=== PATIENT | female | born 1950 | race Caucasian/White ===

== ENCOUNTER 2017-08-05 08:33 | Emergency (ER) | payer MEDICARE ==
[2017-08-05 08:34] VITALS: BP 184/92; PULSE 78; RESP 18; TEMP 98.7; O2SAT 99
--- NOTE | 2017-08-05 09:39 | PD ---
HPI Chief Complaint: Lump, Cyst, Hernia Time Seen by Provider: 09:21 Travel History International Travel<30 days: No Contact w/Intl Traveler<30days: No Traveled to known affect area: No History of Present Illness HPI This is 67 year old female who presents to the emergency department with a mass on her right breast this been there for 1-1/2 years, constant, sore, with no associated purulent drainage, fevers or chills. She had an ultrasound while she was incarcerated and they told her it was highly suspicious for cancer. Currently she is homeless and living in the [facility]. She has no cell phone. She does have Medicare. She was hoping she could be admitted to the hospital and have surgery on this breast mass. [facility] Past Medical History Hypertension: Yes Psychiatric: Yes (ptsd ) Tetanus Vaccination: > 5 Years ?: Not Past Surgical History Surgical History: No Previous Surgery Social History Alcohol Use: No Tobacco Use: Yes Substance Use: No Allergies-Medications (Allergen,Severity, Reaction): Coded Allergies: No Known Allergies (Unverified , 08/05/17) Reported Meds & Prescriptions Reported Meds & Active Scripts Active No Active Prescriptions or Reported Medications Review of Systems General / Constitutional: No: Fever, Chills Gastrointestinal: No: Nausea, Vomiting Physical Exam Narrative GENERAL: Well-appearing, no acute distress, nontoxic SKIN: Warm and dry. Breast: 3 x 3 cm firm irregular lump at 12:00 involving the right breast, nontender with no surrounding induration or erythema HEAD: Atraumatic. Normocephalic. ENT: No nasal bleeding or discharge. Moist mucous membranes MUSCULOSKELETAL: No obvious deformities. No clubbing. No cyanosis. No edema. NEUROLOGICAL: Awake and alert. No obvious cranial nerve deficits. Motor grossly within normal limits. Normal speech. PSYCHIATRIC: Appropriate mood and affect; insight and judgment normal. Data Data Last Documented VS Vital Signs Date Time Temp Pulse Resp B/P (MAP) Pulse Ox O2 Delivery O2 Flow Rate FiO2 08/05/17 08:34 98.7 78 18 184/92 (122) 99 MDM Medical Decision Making Medical Screen Exam Complete: Yes Emergency Medical Condition: Yes Differential Diagnosis Breast cancer, abscess, fibroadenoma Narrative Course This is a 67-year-old female who presents to the emergency department with a mass involving her right breast that's been present for over a year. She certainly needs long-term follow-up. I think our best option is to establish her care through the breast Navigator. [facility] and she is familiar with nurse Juju. I will place a mandatory referral for the breast Navigator through nurse Juju. I also gave the patient a form regarding [facility]. I encouraged her that if this follow-up doesn't work out and she obtains a cell phone she should return to the emergency department and we will try to work with her to establish follow- up. Diagnosis Primary Impression: Breast mass Patient Instructions: General Instructions Additional Instructions: Follow-up with the [facility] or isn't really a health regarding her breast mass. If you have trouble establishing follow-up return to the emergency room. Med/Other Pt SpecificInfo: No Change to Meds Scripts No Active Prescriptions or Reported Meds Disposition: 01 DISCHARGE HOME Condition: Stable Dahiana Infante MD Aug 05, 2017 09:39
== END 2017-08-05 09:57 | disposition home or self-care (01) ==
LOC: NEPD 08:33
DX: N63.0 Unspecified lump in unspecified breast (principal); I10 Essential (primary) hypertension; F43.10 Post-traumatic stress disorder, unspecified; Z59.0 Homelessness
CPT/HCPCS: 99282

== ENCOUNTER 2018-08-11 09:59 | Observation (INO) ==
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
[2018-08-11 10:50] LABS: Baso # (Auto) 0.1 th/mm3 (0.0-0.2); Baso % (Auto) 0.9 % (0.0-2.0); Eos # (Auto) 0.3 th/mm3 (0.0-0.4); Hematocrit 43.2 % (35.0-46.0); Hemoglobin 14.9 gm/dL (11.6-15.3); Lymph # (Auto) 1.6 th/mm3 (1.0-4.8); Lymph % (Auto) 19.9 % (9.0-44.0); Mean Corpuscular HGB Conc 34.5 % (32.0-36.0); Mean Corpuscular Hemoglobin 31.1 pg (27.0-34.0); Mean Corpuscular Volume 90.2 fL (80.0-100.0); Mean Platelet Volume 9.1 fL (7.0-11.0); Mono # (Auto) 0.7 th/mm3 (0.0-0.9); Mono % (Auto) 9.4 % (0.0-8.0); Neut # (Auto) 5.2 th/mm3 (1.8-7.7); Neut % (Auto) 65.8 % (16.0-70.0); Platelet Count 258 th/mm3 (150-450); Red Blood Count 4.79 mil/mm3 (4.00-5.30); Red Cell Distribution Width 14.6 % (11.6-17.2); White Blood Count 7.9 th/mm3 (4.0-11.0)
--- NOTE | 2018-08-11 10:50 | XR ---
EXAM DATE: 08/11/2018 10:47 AM EST AGE/SEX: 68 years / Female INDICATIONS: Chest pain for 3 days, pain left side, no shortness of breath CLINICAL DATA: This is the patient's initial encounter. Patient reports that signs and symptoms have been present for 3 days and indicates a pain score of 8/10. MEDICAL/SURGICAL HISTORY: . smoker None. COMPARISON: No prior exams available for comparison. FINDINGS: Subtle early alveolar opacity laterally right lung without effusion. Left lung clear The heart and pulmonary vascularity are normal. The portion of the bony skeleton visualized is unremarkable. CONCLUSION: Subtle early alveolar opacity right lung could be an inflammatory process. Electronically signed by: Rodrick Crum MD 08/11/2018 10:48 AM EST
--- NOTE | 2018-08-11 10:56 | CT ---
EXAM DATE: 08/11/2018 10:52 AM EST AGE/SEX: 68 years / Female INDICATIONS: Left sided weakness for two days. CLINICAL DATA: This is the patient's initial encounter. Patient reports that signs and symptoms have been present for 1 day and indicates a pain score of 0/10. MEDICAL/SURGICAL HISTORY: Hypertension. Tubal ligation. RADIATION DOSE: 34.89 CTDI (mGy) COMPARISON: . TECHNIQUE: CT of the head without contrast. Using automated exposure control and adjustment of the mA and/or kV according to patient size, radiation dose was kept as low as reasonably achievable to ob tain optimal diagnostic quality images. DICOM format image data is available electronically for revi ew and comparison. FINDINGS: Cerebrum: The ventricles are normal for age. No evidence of midline shift, mass lesion, hemorrhage or acute infarction. No extraaxial fluid collections are seen. Posterior Fossa: The cerebellum and brainstem are intact. The 4th ventricle is midline. The cerebe llopontine angle is unremarkable. Extracranial: The visualized portion of the orbits is intact. Skull: The calvaria is intact. No evidence of skull fracture. CONCLUSION: 1. Negative for an acute process. 2. I do not see significant ischemic changes . Electronically signed by: Rodrick Crum MD 08/11/2018 10:55 AM EST
[2018-08-11 11:09] LABS: Alanine Aminotransferase 25 U/L (10-53); Albumin 3.4 g/dL (3.4-5.0); Anion Gap 7 meq/L (5-15); Aspartate Aminotransferase 25 U/L (15-37); Blood Urea Nitrogen 15 mg/dL (7-18); Calcium 8.5 mg/dL (8.5-10.1); Carbon Dioxide 27.7 meq/L (21.0-32.0); Chloride 107 meq/L (98-107); Glomerular Filtration Rate 50 mL/min (>89); Glucose,Random 113 mg/dL (74-106); Sodium 142 meq/L (136-145)
[2018-08-11 11:14] LABS: Alkaline Phosphatase 154 U/L (45-117); Total Protein 7.6 g/dL (6.4-8.2)
[2018-08-11] MEDS ORDERED: *Labetalol HCl Inj 100 MG/20 ML Vial PERIprocedural Use ONLY IV.PUSH ONE (11:47)
[2018-08-11] MEDS ORDERED: Acetaminophen 325 MG Tablet PO PRN (12:12)
[2018-08-11] MEDS ORDERED: Bisacodyl 10 MG Supp RECTAL PRN (12:12)
[2018-08-11] MEDS ORDERED: Sod Chloride 0.9% Inj 1,000 ML IV.CONT SCH (12:15)
[2018-08-11 13:01] LABS: Bilirubin,Urine Negative (Negative); Clarity,Urine Hazy (Clear); Color,Urine Yellow (Yellw/Straw); Glucose,Urine (UA) Negative (Negative); Leukocyte Esterase,Urine Trace (Negative); Mucus,Urine Few /lpf (Occasional); Nitrite,Urine Negative (Negative); Specific Gravity,Urine 1.017 (1.002-1.035); Squamous Epithelial Cell,Urine 7 /hpf (0-5)
[2018-08-11 15:57] LABS: Chol/HDL Ratio 3.23 Ratio; HDL Cholesterol 55.6 mg/dL (40.0-60.0)
[2018-08-11] MEDS ORDERED: amLODIPine 5 MG Tablet PO ONE (18:00)
[2018-08-11 18:02] VITALS: RESP 20
--- NOTE | 2018-08-11 18:44 | US ---
EXAM DATE: 08/11/2018 6:31 PM EST AGE/SEX: 68 years / Female INDICATIONS: Cerebrovascular accident. CLINICAL DATA: This is the patient's initial encounter. Patient reports that signs and symptoms have been present for 1 day and indicates a pain score of 0/10. MEDICAL/SURGICAL HISTORY: Hypertension. Depression. PTSD. Tubal ligation. COMPARISON: [facility] – [place], [place] HEAD W/O CONTRAST, 08/11/2018. . VELOCITY PARAMETERS: ICA/CCA Ratio: Right Unable to obtain. , Left 1.6 ICA: Right Unable to obtain. cm/sec, Left 134 cm/sec CCA: Right 64.7 cm/sec, Left 86.0 cm/sec ECA: Right 93.0 cm/sec, Left 87.6 cm/sec Vertebral: Right 58.6 cm/sec antegrade, Left 75.9 cm/sec antegrade FINDINGS: No flow identified in the right internal carotid artery which appears to be occluded. Mild calcified plaque seen bilaterally in the remainder of the carotid arteries. CONCLUSION: 1. Right Internal Carotid Artery: Occluded 2. Left Internal Carotid Artery: Mild plaque without significant stenosis. Electronically signed by: Nir Infante MD 08/11/2018 6:43 PM EST
--- NOTE | 2018-08-11 18:46 | ECG ---
Date Performed: 08/11/2018 Time Performed: 10:33:06 PTAGE: 68 years EKG: Sinus rhythm POSSIBLE LEFT ATRIAL ENLARGEMENT NONSPECIFIC T-WAVE ABNORMALITY BORDERLINE ECG INTERPRETATION BASED ON A DEFAULT AGE OF 40 YEARS NO PREVIOUS TRACING DOCTOR: J Luis Gonzalez Interpretating Date/Time 08/11/2018 18:44:49
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
--- NOTE | 2018-08-11 21:49 | MR ---
EXAM DATE: 08/11/2018 9:43 PM EST AGE/SEX: 68 years / Female INDICATIONS: CVA. CLINICAL DATA: This is the patient's initial encounter. Patient reports that signs and symptoms have been present for 1 day and indicates a pain score of 0/10. MEDICAL/SURGICAL HISTORY: Hypertension. Tubal ligation. COMPARISON: No prior exams available for comparison. TECHNIQUE: Multiplanar, multisequence examination of the brain was performed without contrast. FINDINGS: There is a subacute infarct in the posterior right frontal region and right parietal lobe gyriform si gnal abnormality. Infarct extends into the periventricular white matter. There is moderate chronic ischemic changes in the periventricular white matter is well. This probably related to history of hypertension. No left-sided infarction identified. No hydrocephalus. No abnormal extra-axial fluid. No sellar mass . CONCLUSION: 1. Subacute infarct in the posterior right MCA distribution involving primarily the parietal lobe an d posterior right frontal lobe. Electronically signed by: Nir Infante MD 08/11/2018 9:48 PM EST
--- NOTE | 2018-08-12 07:25 | P.CONVS ---
History of Present Illness Service: Vascular surgery Consult date: 08/12/18 Reason for Consult: stroke Primary Care Provider: UNKNOWN Chief Complaint: stroke History of Present Illness: 68 yo female with HTN and tobacco abuse who had a stroke Saturday manifesting as L UE weakness and speech abnormality. Both have persisted. No prior CVA/ TIA. Still smoking. Review of Systems Constitutional: Denies chills, Denies fever(s) Neurologic: Reports abnormal speech, Reports localized weakness PMFSH - History History Provided By: Patient - Medical History Medical History: Medical History (Last Reviewed 08/12/18 @ 07:22 by Ced Montaño MD) Depression Hypertension PTSD (post-traumatic stress disorder) - Surgical History Surgical History: Surgical History (Last Reviewed 08/12/18 @ 07:22 by Ced Montaño MD) History of tubal ligation - Tobacco History Second Hand Smoke Exposure: Yes Tobacco Use In Past 30 Days: Yes Smoking Status: Heavy tobacco smoker Tobacco Type: Cigarettes - Alcohol History How Often Do You Have a Drink Containing Alcohol: Never - Substance Use History Substance History: No History of Abuse - Travel History Recent Travel in the [place] Within the Last 8 Weeks: No Recent Travel Out of the Country Within the Last 8 Weeks: No - Immunization History Tetanus Immunization: <5 Years Medications and Allergies Active Medications: Active Medications Acetaminophen (Tylenol) 650 mg PO Q4H PRN PRN Reason: Temp > 100.4 Al Hydroxide/Mg Hydroxide (Milk Of Magnesia Liq) 30 ml PO Q12H PRN PRN Reason: Mild Constipation Amlodipine Besylate (Norvasc) 5 mg PO DAILY [facility] Aspirin (Ecotrin) 81 mg PO DAILY [facility] Bisacodyl (Dulcolax Supp) 10 mg RECTAL DAILY PRN PRN Reason: SEVERE CONSITIPATION Lactulose (Lactulose Liq) 30 ml PO DAILY PRN PRN Reason: SEVERE CONSITIPATION Ondansetron HCl (Zofran Inj) 4 mg IV.PUSH Q6H PRN PRN Reason: NAUSEA OR VOMITING Sennosides (Senokot) 17.2 mg PO Q12H PRN PRN Reason: Moderate Constipation Sodium Chloride (Ns Flush) 2 ml IV.FLUSH BID [facility] Last Admin: 08/11/18 20:56 Dose: 2 ml Sodium Chloride (Ns Flush) 2 ml IV.FLUSH PRN PRN PRN Reason: FLUSH AFTER USING IV ACCESS Allergies Allergy/AdvReac Type Severity Reaction Status Date / Time No Known Allergies Allergy Verified 08/11/18 10:16 Home Medications Medication Instructions Recorded Confirmed Type amlodipine mg PO DAILY 07/18/18 History lisinopril 20 mg PO DAILY 07/18/18 08/11/18 History Physical Exam Vital Signs / I&O: Vital Signs 08/11/18 10:09 08/11/18 10:15 08/11/18 10:29 Temperature 98.8 F Pulse Rate 64 70 Respiratory Rate 16 18 Blood Pressure 164/84 H 218/100 H Pulse Oximetry 97 98 96 08/11/18 13:00 08/11/18 14:15 08/11/18 16:00 Temperature 98.5 F Pulse Rate 58 L 69 72 Respiratory Rate 16 18 20 Blood Pressure 174/85 H 177/84 H 167/78 H Pulse Oximetry 100 98 08/11/18 19:57 08/11/18 20:00 08/12/18 00:00 Temperature 98.1 F 97.8 F Pulse Rate 85 63 64 Respiratory Rate 20 20 Blood Pressure 167/76 H 159/78 H Pulse Oximetry 95 93 L 08/12/18 00:15 08/12/18 03:52 08/12/18 04:00 Temperature 98.2 F Pulse Rate 120 H 66 61 Respiratory Rate 20 Blood Pressure 183/84 H Pulse Oximetry 93 L Intake & Output 08/11/18 08/12/18 08/12/18 18:59 06:59 18:59 Output Total 500 / 500 Balance -500 / -500 Weight 52.163 kg 0 g Output: Urine 500 / 500 Other: Weight On Admission 52.16 kg Neuro: alert, conversant, slightly slurred speech L UE weak (4/5) but L LE and R UE/LE 5/5 R facial droop mild HEENT: Nc/AT Neck: no JVD Heart: reg rate Lungs: clear Laboratory Results - last 24 hr 08/11/18 08/11/18 08/11/18 10:34 10:35 10:35 WBC 7.9 RBC 4.79 Hgb 14.9 Hct 43.2 MCV 90.2 MCH 31.1 MCHC 34.5 RDW 14.6 Plt Count 258 MPV 9.1 Neut % (Auto) 65.8 Lymph % (Auto) 19.9 [place] % (Auto) 9.4 H Eos % (Auto) 4.0 Baso % (Auto) 0.9 Neut # (Auto) 5.2 Lymph # (Auto) 1.6 [place] # (Auto) 0.7 Eos # (Auto) 0.3 Baso # (Auto) 0.1 WBC Differential . Differential Comment Auto diff final Sodium 142 Potassium 4.0 Chloride 107 Carbon Dioxide 27.7 Anion Gap 7 BUN 15 Creatinine 1.10 H Estimated GFR 50 L POC Glucose 93 Random Glucose 113 H Calcium 8.5 Magnesium 2.0 Total Bilirubin 0.3 AST 25 ALT 25 Alkaline Phosphatase 154 H Troponin I Less than 0.02 L Total Protein 7.6 Albumin 3.4 Triglycerides Cholesterol LDL Cholesterol, Calc HDL Cholesterol Cholesterol/HDL Ratio Urine Color Urine Clarity Urine pH Ur Specific [place] Urine Protein Urine Glucose (UA) Urine Ketones Urine Occult Blood Urine Nitrate Urine Bilirubin Urine Urobilinogen Ur Leukocyte Esterase Urine RBC Urine WBC Ur Squamous Epith Cells Urine Mucus Micro UA Comment Ur Microscopic Review Urine Culture Comments 08/11/18 08/11/18 10:35 12:30 WBC RBC Hgb Hct MCV MCH MCHC RDW Plt Count MPV Neut % (Auto) Lymph % (Auto) [place] % (Auto) Eos % (Auto) Baso % (Auto) Neut # (Auto) Lymph # (Auto) [place] # (Auto) Eos # (Auto) Baso # (Auto) WBC Differential Differential Comment Sodium Potassium Chloride Carbon Dioxide Anion Gap BUN Creatinine Estimated GFR POC Glucose Random Glucose Calcium Magnesium Total Bilirubin AST ALT Alkaline Phosphatase Troponin I Total Protein Albumin Triglycerides 129 Cholesterol 180 LDL Cholesterol, Calc 99 HDL Cholesterol 55.6 Cholesterol/HDL Ratio 3.23 Urine Color Yellow Urine Clarity Hazy H Urine pH 6.0 Ur Specific [place] 1.017 Urine Protein Negative Urine Glucose (UA) Negative Urine Ketones Negative Urine Occult Blood Negative Urine Nitrate Negative Urine Bilirubin Negative Urine Urobilinogen Less than 2 Ur Leukocyte Esterase Trace H Urine RBC Less than 1 Urine WBC 1 Ur Squamous Epith Cells 7 Urine Mucus Few H Micro UA Comment Culture not ind Ur Microscopic Review Not Reportable Urine Culture Comments Culture not ind Impressions Carotid Doppler Study 08/11/18 00:00 CONCLUSION: 1. Right Internal Carotid Artery: Occluded 2. Left Internal Carotid Artery: Mild plaque without significant stenosis. Head MRI 08/11/18 00:00 CONCLUSION: 1. Subacute infarct in the posterior right MCA distribution involving primarily the parietal lobe and posterior right frontal lobe. Chest X-Ray 08/11/18 10:28 CONCLUSION: Subtle early alveolar opacity right lung could be an inflammatory process. Head CT 08/11/18 10:28 CONCLUSION: 1. Negative for an acute process. 2. I do not see significant ischemic changes . Assessment and Plan - Assessment (1) Stroke Code(s): I63.9 - Cerebral infarction, unspecified Status: Acute - Plan R hemispheric CVA by clinical symptoms and MR (posterior R MCA). I reviewed her carotid duplex and the R ICA is occluded the LEFT ICA has velocities barely above the 50% threshold. 1. Because of ICA occlusion, CEA not beneficial. 2. Medical management including ASA, statin. 3. Discussed smoking cessation with the patient. will arrange f/u in my clinic Ced Montaño MD [facility] [phone]
--- NOTE | 2018-08-12 08:18 | P.CONNEU ---
History of Present Illness Service: Neurology Primary Care Provider: UNKNOWN Chief Complaint: stroke History of Present Illness: 68-year-old female admitted to the medical service for stroke. Left-sided weakness approximately 2 days prior to arrival. Does not take any medication. Admits to smoking half to 1 pack a day for decades. No history of TIA or stroke. Denies any head or neck trauma. Review of Systems All other systems reviewed negative except as stated in HPI PMFSH - History History Provided By: Patient - Medical History Medical History: Medical History (Last Reviewed 08/12/18 @ 07:22 by Ced Montaño MD) Depression Hypertension PTSD (post-traumatic stress disorder) - Surgical History Surgical History: Surgical History (Last Reviewed 08/12/18 @ 07:22 by Ced Montaño MD) History of tubal ligation - Tobacco History Second Hand Smoke Exposure: Yes Tobacco Use In Past 30 Days: Yes Smoking Status: Heavy tobacco smoker Tobacco Type: Cigarettes - Alcohol History How Often Do You Have a Drink Containing Alcohol: Never - Substance Use History Substance History: No History of Abuse - Travel History Recent Travel in the [place] Within the Last 8 Weeks: No Recent Travel Out of the Country Within the Last 8 Weeks: No - Immunization History Tetanus Immunization: <5 Years Medications and Allergies Active Medications: Active Medications Acetaminophen (Tylenol) 650 mg PO Q4H PRN PRN Reason: Temp > 100.4 Al Hydroxide/Mg Hydroxide (Milk Of Magnesia Liq) 30 ml PO Q12H PRN PRN Reason: Mild Constipation Amlodipine Besylate (Norvasc) 5 mg PO DAILY [facility] Aspirin (Ecotrin) 81 mg PO DAILY [facility] Bisacodyl (Dulcolax Supp) 10 mg RECTAL DAILY PRN PRN Reason: SEVERE CONSITIPATION Lactulose (Lactulose Liq) 30 ml PO DAILY PRN PRN Reason: SEVERE CONSITIPATION Ondansetron HCl (Zofran Inj) 4 mg IV.PUSH Q6H PRN PRN Reason: NAUSEA OR VOMITING Sennosides (Senokot) 17.2 mg PO Q12H PRN PRN Reason: Moderate Constipation Sodium Chloride (Ns Flush) 2 ml IV.FLUSH BID [facility] Last Admin: 08/11/18 20:56 Dose: 2 ml Sodium Chloride (Ns Flush) 2 ml IV.FLUSH PRN PRN PRN Reason: FLUSH AFTER USING IV ACCESS Allergies Allergy/AdvReac Type Severity Reaction Status Date / Time No Known Allergies Allergy Verified 08/11/18 10:16 Home Medications Medication Instructions Recorded Confirmed Type amlodipine mg PO DAILY 07/18/18 History lisinopril 20 mg PO DAILY 07/18/18 08/11/18 History Exam Vital signs: Vital Signs 08/11/18 10:09 08/11/18 10:15 08/11/18 10:29 Temperature 98.8 F Pulse Rate 64 70 Respiratory Rate 16 18 Blood Pressure 164/84 H 218/100 H Pulse Oximetry 97 98 96 08/11/18 13:00 08/11/18 14:15 08/11/18 16:00 Temperature 98.5 F Pulse Rate 58 L 69 72 Respiratory Rate 16 18 20 Blood Pressure 174/85 H 177/84 H 167/78 H Pulse Oximetry 100 98 08/11/18 19:57 08/11/18 20:00 08/12/18 00:00 Temperature 98.1 F 97.8 F Pulse Rate 85 63 64 Respiratory Rate 20 20 Blood Pressure 167/76 H 159/78 H Pulse Oximetry 95 93 L 08/12/18 00:15 08/12/18 03:52 08/12/18 04:00 Temperature 98.2 F Pulse Rate 120 H 66 61 Respiratory Rate 20 Blood Pressure 183/84 H Pulse Oximetry 93 L Intake & Output 08/11/18 08/12/18 08/12/18 18:59 06:59 18:59 Output Total 500 / 500 Balance -500 / -500 Weight 52.163 kg 0 g Output: Urine 500 / 500 Other: Weight On Admission 52.16 kg Narrative: GENERAL: in NAD, SKIN: Warm and dry. HEAD: Atraumatic. Normocephalic. EYES: Pupils equal and round. ENT: No nasal bleeding or discharge. NECK: Trachea midline. No JVD. CARDIOVASCULAR: Regular rate and rhythm. RESPIRATORY: No accessory muscle use. GASTROINTESTINAL: Abdomen soft, non-tender, nondistended. MUSCULOSKELETAL: Extremities without clubbing, cyanosis, or edema. No obvious deformities. NEUROLOGICAL: Awake and alert. No aphasia, dysarthric speech, left lower facial weakness, OU 3-2mm, eomi, VFF. Left hemiparesis mainly upper extremity strength 3-4 out of 5, left lower semi-5- out of 5, left upper extremity dystaxia, no neglect, gait not assessed secondary to fall risk PSYCHIATRIC: Appropriate mood and affect; insight and judgment normal. - Constitutional no acute distress - Routine HEENT Exam Head: Present: normocephalic Eye: Present: EOMI Results - Labs CBC & Chem 7: 08/11/18 10:35 08/11/18 10:35 Labs: Laboratory Results - last 24 hr 08/11/18 08/11/18 08/11/18 10:34 10:35 10:35 WBC 7.9 RBC 4.79 Hgb 14.9 Hct 43.2 MCV 90.2 MCH 31.1 MCHC 34.5 RDW 14.6 Plt Count 258 MPV 9.1 Neut % (Auto) 65.8 Lymph % (Auto) 19.9 [place] % (Auto) 9.4 H Eos % (Auto) 4.0 Baso % (Auto) 0.9 Neut # (Auto) 5.2 Lymph # (Auto) 1.6 [place] # (Auto) 0.7 Eos # (Auto) 0.3 Baso # (Auto) 0.1 WBC Differential . Differential Comment Auto diff final Sodium 142 Potassium 4.0 Chloride 107 Carbon Dioxide 27.7 Anion Gap 7 BUN 15 Creatinine 1.10 H Estimated GFR 50 L POC Glucose 93 Random Glucose 113 H Calcium 8.5 Magnesium 2.0 Total Bilirubin 0.3 AST 25 ALT 25 Alkaline Phosphatase 154 H Troponin I Less than 0.02 L Total Protein 7.6 Albumin 3.4 Triglycerides Cholesterol LDL Cholesterol, Calc HDL Cholesterol Cholesterol/HDL Ratio Urine Color Urine Clarity Urine pH Ur Specific [place] Urine Protein Urine Glucose (UA) Urine Ketones Urine Occult Blood Urine Nitrate Urine Bilirubin Urine Urobilinogen Ur Leukocyte Esterase Urine RBC Urine WBC Ur Squamous Epith Cells Urine Mucus Micro UA Comment Ur Microscopic Review Urine Culture Comments 08/11/18 08/11/18 10:35 12:30 WBC RBC Hgb Hct MCV MCH MCHC RDW Plt Count MPV Neut % (Auto) Lymph % (Auto) [place] % (Auto) Eos % (Auto) Baso % (Auto) Neut # (Auto) Lymph # (Auto) [place] # (Auto) Eos # (Auto) Baso # (Auto) WBC Differential Differential Comment Sodium Potassium Chloride Carbon Dioxide Anion Gap BUN Creatinine Estimated GFR POC Glucose Random Glucose Calcium Magnesium Total Bilirubin AST ALT Alkaline Phosphatase Troponin I Total Protein Albumin Triglycerides 129 Cholesterol 180 LDL Cholesterol, Calc 99 HDL Cholesterol 55.6 Cholesterol/HDL Ratio 3.23 Urine Color Yellow Urine Clarity Hazy H Urine pH 6.0 Ur Specific [place] 1.017 Urine Protein Negative Urine Glucose (UA) Negative Urine Ketones Negative Urine Occult Blood Negative Urine Nitrate Negative Urine Bilirubin Negative Urine Urobilinogen Less than 2 Ur Leukocyte Esterase Trace H Urine RBC Less than 1 Urine WBC 1 Ur Squamous Epith Cells 7 Urine Mucus Few H Micro UA Comment Culture not ind Ur Microscopic Review Not Reportable Urine Culture Comments Culture not ind - Imaging Impressions Carotid Doppler Study 08/11/18 00:00 CONCLUSION: 1. Right Internal Carotid Artery: Occluded 2. Left Internal Carotid Artery: Mild plaque without significant stenosis. Head MRI 08/11/18 00:00 CONCLUSION: 1. Subacute infarct in the posterior right MCA distribution involving primarily the parietal lobe and posterior right frontal lobe. Chest X-Ray 08/11/18 10:28 CONCLUSION: Subtle early alveolar opacity right lung could be an inflammatory process. Head CT 08/11/18 10:28 CONCLUSION: 1. Negative for an acute process. 2. I do not see significant ischemic changes . Review/Management - Diagnosis (1) Acute right MCA stroke Code(s): I63.511 - Cerebral infarction due to unspecified occlusion or stenosis of right middle cerebral artery Status: Acute Current Visit: Yes (2) Occlusion of right internal carotid artery Code(s): I65.21 - Occlusion and stenosis of right carotid artery Status: Acute Current Visit: Yes (3) Tobacco use Code(s): Z72.0 - Tobacco use Status: Acute Current Visit: Yes - Review/Management Plan: Scattered right hemispheric stroke secondary to right ICA occlusion Likely secondary to chronic tobacco use Carotid ultrasound showing right ICA occlusion Recommendation Aspirin, statin Tobacco cessation Avoid hypotension Therapy Inpatient rehab versus home with PT Behavioral modification and risk factor reduction. Weight loss, blood pressure control, blood sugar control, lipid control. Exercise
[2018-08-12 08:30] LABS: Chol/HDL Ratio 3.17 Ratio; HDL Cholesterol 53.9 mg/dL (40.0-60.0)
[2018-08-12] MEDS ORDERED: amLODIPine 5 MG Tablet PO SCH (09:00)
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
[2018-08-12 13:45] VITALS: BP 170/81; PULSE 67; TEMP 98.1; O2SAT 95
== END 2018-08-12 17:20 | disposition home or self-care (01) ==
LOC: NEDA 09:59 → NEPC 09:59 → N05 16:26
PROVIDERS: ADMIT Hospitalist; ATTEND Hospitalist